=== PATIENT | male | born 1985 | race Caucasian/White ===

== ENCOUNTER → 2020-09-10 | Outpatient (CLI) | payer OTHER ==
[~2020-09-10] MED LIST: AMOXICILLIN500 MG PO; ATIVAN0.5 MG PO; MOTRIN800 MG PO; NO DAILY MEDS; PEPCID20 MG PO; VICODIN ES 7501 TAB PO; Zofran4 MG PO
== END | disposition home or self-care (01) ==
LOC: COVID19 11:04
PROVIDERS: ATTEND Social Worker Clinical
DX: U07.1 COVID-19 (principal)

== ENCOUNTER 2024-09-21 17:15 | Emergency (ER) | payer OTHER ==
[~2024-09-21] VITALS: Ht 182.8 cm; Wt 111.6 kg
[2024-09-21] MEDS ORDERED: SODIUM CHLORIDE 0.9% 1,000 ML IV ONE (17:20)
[2024-09-21] MEDS ORDERED: ADENOSINE 6 MG/2 ML VIAL IV ONE ×2 (17:20)
[2024-09-21] MEDS ORDERED: Metoprolol Tartrate 5 MG/5 ML VIAL IV ONE (17:20)
[2024-09-21 17:38] LABS: BASO # 0.1 10*3/uL (0.0-0.1); BASO % 0.4 % (0.0-1.0); EOS # 0.1 10*3/uL (0.0-0.4); EOS % 0.4 % (1.0-4.0); HEMATOCRIT 45.9 % (42.0-52.0); MEAN CELL VOLUME 93.1 fl (80.0-94.0); MEAN CORPUSCULAR HGB 31.8 pg (27.0-31.0); MEAN CORPUSCULAR HGB CONC 34.2 g/dl (33.0-37.0); MEAN PLATELET VOLUME 9.2 fl (9.6-12.3); MONO # 1.2 10*3/uL (0.1-1.0); MONO % 10.1 % (3.0-9.0); NEUT # 7.4 10*3/uL (2.3-7.9); NEUT % 60.3 % (47.0-73.0); PLATELET COUNT AUTOMATED 368 10*3/uL (130-400); RED BLOOD COUNT 4.93 10*6/uL (4.50-5.90); WHITE BLOOD COUNT 12.2 10*3/uL (4.8-10.8)
[2024-09-21] MEDS ORDERED: LORazepam 1 MG TAB PO ONE (17:50)
[2024-09-21 18:05] LABS: BUN 14 mg/dl (9-23); CHLORIDE 103 mmol/L (98-107); POTASSIUM 3.7 mmol/L (3.4-5.1)
[2024-09-21] MEDS ORDERED: diazePAM 10 MG/2 ML SYR IV ONE (18:20)
[2024-09-21] MEDS ORDERED: LOPRESSOR25 MG PO (18:22)
[2024-09-21] MEDS ORDERED: VISTARIL25 MG PO (18:41)
[2024-09-21 18:56] VITALS: BP 140/100
== END 2024-09-21 19:18 | disposition home or self-care (01) ==
LOC: ED 17:15
PROVIDERS: Emergency Medicine
DX: I47.10 Supraventricular tachycardia, unspecified (principal)